=== PATIENT | female | born 1965 | race Caucasian/White ===

== ENCOUNTER 2021-01-11 16:46 | Emergency (ER) | payer OTHER, SELFPAY ==
[2021-01-11 17:04] VITALS: BP 150/98; PULSE 85; RESP 18; TEMP 36.6; O2SAT 98; BMI 21.9
--- NOTE | 2021-01-11 17:11 | HMH.EDGENADL ---
ED Disposition Clinical Impression: Right knee sprain Qualifiers: Encounter type: initial encounter Involved ligament of knee: lateral collateral ligament Qualified Code(s): S83.421A - Sprain of lateral collateral ligament of right knee, initial encounter Disposition: Home, Self-Care Condition on Discharge: Good Additional Instructions: Wear your straight leg brace and use your crutches until seen by your orthopedist, Dr. Del Castillo. Call tomorrow to make appointment. Continue ibuprofen for pain. Ice as needed for pain and swelling. Referrals: Mk Reeys [Primary Care Provider] - Forms: Work/School Release - Critical Care Critical Care Time: No Attestation: On 01/11/21, the high probability of a clinically significant, sudden or life threatening deterioration of the following system(s) required my full and direct attention, intervention and personal management. The time I documented below is in addition to time spent performing reported procedures but includes the following listed in this critical care notation. Medical Decision Making - Song Inquiry Pt receiving controlled substance: No Vital Signs: 01/11/21 17:04 Temperature 97.8 F Temperature Source Oral Pulse Rate [Left Radial] 85 Respiratory Rate 18 Blood Pressure [Left Arm] 150/98 H Blood Pressure Mean [Left Arm] 115 Blood Pressure Source [Left Arm] Automatic Cuff Blood Pressure Position [Left Arm] Sitting 02 Sat by Pulse Oximetry 98 Oxygen Delivery Method Room Air Orders (Tests/Meds): ORDERS Category Date Time Status Tibia/fibula XR right 2 views [XR tibia fibula RT 2V] Exams 01/11/21 17:15 Taken Stat - Radiology Data #1 Image(s): Knee, Tib/Fib Image Reviewed: Yes I reviewed the patient's radiology image No fracture or dislocation seen. Orthopedic screws and patella are intact. No effusion seen. General Adult HPI - General Stated complaint: rt knee locked up, fell down steps 01/10/21 Time Seen by Provider: 01/11/21 17:11 - History of Present Illness HPI narrative: States that she was walking on steps yesterday when her knee locked up causing her to fall. Since then she has pain in her right knee laterally and proximal lower leg laterally and states that she cannot bear weight. Toes feel a little tingly. States she has a prior history of a fractured patella of her right knee a few years ago with surgery, has screws in her patella. Surgery done at [facility] in [place]. She has taken ibuprofen for her current symptoms. She says that she does have a straight leg brace and crutches at home. - Related Data Allergies Allergy/AdvReac Type Severity Reaction Status Date / Time No Known Allergies Allergy Verified 01/11/21 17:12 [facility] History - Hepatitis A Screen Attestation statement:: This patient has been screened for Hepatitis A risk factors. I have reviewed the patient's past medical history: Yes ROS Obtained: Yes Systems reviewed as appropriate & no additional complaints - Musculoskeletal Musculoskeletal: Reports joint pain - Neurologic Neurologic: Denies numbness, Reports tingling, Denies weakness Physical Exam - General General appearance: alert, in no apparent distress - Respiratory Respiratory exam: Absent: respiratory distress - Cardiovascular Cardiovascular exam: Present: regular rate - Expanded Lower Extremity Exam Right Comment: Longitudinal surgical scar anterior right knee. Tenderness of the lateral right knee and the proximal one third of the lateral lower leg. No tenderness of the thigh or femur. No significant effusion detected. No deformity. Distal neurovascular status was normal sensation, movement, warmth, and pulses. - Neurological Exam Neurological exam: Present: alert, oriented X3. Absent: motor sensory deficit
--- NOTE | 2021-01-11 17:12 | XR_ITS ---
PROCEDURE INFORMATION: Exam: XR Right Knee Exam date and time: 01/11/2021 5:12 PM Age: 55 years old Clinical indication: Injury or trauma; Fall; Blunt trauma; Right; Injury date: 01/10/21; Injury details: Patient fell and knee locked up and she can not weight bear; Prior surgery; Surgery date: 6+ months; Surgery type: Previous patella fracture repair; Additional info: Previous injury, pain patient fell and knee locked up and she can not weight bear TECHNIQUE: Imaging protocol: XR Right knee. Views: 3 views. COMPARISON: No relevant prior studies available. FINDINGS: Bones/joints: Two screws seen in the patella seem intact. A nondisplaced lateral tibial plateau fracture is seen. No malalignment. Soft tissues: Soft tissues notable for a small suprapatellar effusion. IMPRESSION: There is a nondisplaced lateral tibial plateau fracture identified.
--- NOTE | 2021-01-11 17:13 | PC.NURSE ---
Notified rad of knee xray
--- NOTE | 2021-01-11 17:15 | XR_ITS ---
PROCEDURE INFORMATION: Exam: XR Right Tibia and Fibula Exam date and time: 01/11/2021 5:15 PM Age: 55 years old Clinical indication: Injury or trauma; Fall; Blunt trauma; Right; Injury date: 01/10/21; Injury details: Patient fell and knee locked up and she can not weight bear; Additional info: Fall, injury TECHNIQUE: Imaging protocol: XR Right tibia and fibula. Views: 2 views. COMPARISON: CR XR KNEE RT 3V 01/11/2021 5:13 PM FINDINGS: Bones/joints: Two screws seen in the patella seem intact. A nondisplaced lateral tibial plateau fracture is seen. No malalignment. Probable nutrient foramen running obliquely through the tibial shaft. Soft tissues: Soft tissues notable for a small suprapatellar effusion. IMPRESSION: There is a nondisplaced lateral tibial plateau fracture identified.
[2021-01-11 18:15] VITALS: BP 129/78; PULSE 75; RESP 18; TEMP 36.6; O2SAT 98
== END 2021-01-11 18:16 | disposition home or self-care (01) ==
PROVIDERS: Emergency Provider Emergency Medicine; PCP Pediatrics
DX: S83.421A Sprain of lateral collateral ligament of right knee, initial encounter (principal); W10.9XXA Fall (on) (from) unspecified stairs and steps, initial encounter; Y92.69 Other specified industrial and construction area as the place of occurrence of the external cause; Y99.0 Civilian activity done for income or pay
CPT/HCPCS: 73562; 73590; 99282

== ENCOUNTER 2024-10-01 03:59 | Emergency (ER) | payer OTHER, SELFPAY ==
--- OUTSIDE RECORDS SUMMARY | 2015-10-07 12:01 | XMS_ITS | Continuity of Care Document ---
Author Organization [facility] Address [address] [place] [address] Phone Care Team Providers Care Tavern Operator Name Role Phone Dereje Cruz MD Unavailable Unavailable Medications Medication Instructions Dosage Effective Dates (start - stop) Status Comments ciprofloxacin 0.3 % eye drops instill 1 Drop by Ophthalmic route 2 times every day into the left eye 1 Drop - Active Procedures Procedure Date OFFICE CONSULTATION OFFICE/OUTPATIENT VISIT, NEW Advance Directives Directive Yes / No Effective Date File Name No Information Encounters Encounter Description Practice Location Reason(s) For Visit Diagnoses Date Provider Providers Copied on Encounter [facility] , [address] [place], [place], [facility], tel:[phone] [facility] No Information Anthony Reyez. [address] [place] [address], [place] [address], [place], [place], [id number]. tel:[phone] OFFICE CONSULTATION [facility] , [address] [place], [place], [facility], tel:[phone] [facility] 4 day fu cl related keratitis (chief complaint) Contact lens overwear of both eyes Anthony Reyez. [address] [place] [address], [place] [address], [place], [place], [id number]. tel:[phone] Referring Provider: Dereje Scanlon, [address] [place] [address] [address], [place], [address]. tel:[phone] OFFICE/OUTPATI ENT VISIT, NEW [facility] , [address] [place], [address], tel:[phone] RAMON Camacho [facility] urgent (chief complaint) Contact lens overwear of both eyes Anthony Reyez. [address] [place] [address], [address], [place], [place], [id number]. tel:[phone] Referring Provider: Dereje Scanlon, [address] [place] [address] [address], [place], [address]. tel:[phone] Family History Family Member Type Diagnosis Age At Onset Mother Problem (finding) cataract Brother Problem (finding) Cancer, unknown Payers Payer name Insurance type Covered republican ID Authoriza tion(s) No Information Social History Type Description Quantity Date Captured Comments Sex Female Smoking Status No Information Chief Complaint And Reason For Visit No Information Reason For Referral Reason For Referral No Information History Of Present Illness Encounter Date Complaint History Of Prese nt Illness 4 day fu cl related keratitis Th e 49 year old female presents for evaluation of 4 day fu cl related keratitis in the right eye. Eye feels better. Va is getting better still little blurry. urgent The 49 year old female presents for evaluation of urgent in the right eye. It started about 3 day(s) ago. It occurs constantly. The patient feels it is moderate. Pain level fluctutates. Pt c/o photophobia. Pt c/o decreased vision. Pt does wear contact lenses. Pt does sleep in contact lenses, pt states that the pair she had was bout 2 weeks old, pt states that at night she will take them out, clean them and put them right back in and she does sleep in them every night. Pt uses regular contact lens solution. Pt does not ever use water on contact lenses. Functional Status Date Functional Assessmen t No Information Instructions Date Instruction Additional Infor chelsea - Return - PRN Related to See i mpression details - Decrease Cipro BID OD-okay to stop when patient runs out of dropOkay to f/u with local OD for new fit of contacts in 1 wk.Advised patient NOT to sleep in contacts.f/u PRN with [facility] Related to See impression details - Return to Dr. Cruz on ay Related to See impression details - - Continue Cipro Q ID OD- Advised patient to D/C CL- Follow up with [facility] 3 days to consider adding steriod Related to See impression details Assessments Type Assessment Date No Information Patient Care Teams Name Effective Dates (start - stop) Status Members No Information
--- OUTSIDE RECORDS SUMMARY | 2024-10-01 04:06 | XMS_ITS | Clinical Summary ---
Author Organization [facility] Address [address] [place] [address] Phone Care Team Providers Care Screen Printing Paster Name Role Phone Joe Pan MD Primary Care Provider Allergies Active Allergy Reactions Criticality Noted Date Comments Codeqamar Hamlin High 07/13/2013 Medications atorvastatin (LIPITOR) 40 mg Oral TabletIndicatio ns:Coronary artery disease involving lower [place] coronary artery of lower [place] heart without angina pectoris Take 1 Tablet by mouth daily. 90 Tablet 3 Active Additional Information Patient not taking.Reported on 07/16/2024 ergocalciferol (VITAMIN D) 1,250 mcg (50,000 unit) Oral CapsuleIndicati ons:Vitamin D deficiency Take 1 Capsule by mouth once a week. 12 Capsule 3 Active Additional Information Patient not taking.Reported on 07/16/2024 Active Problems Problem Noted Date Diagnosed Date Vitamin D deficiency 05/08/2024 Centrilobular emphysema 05/08/2024 Coronary artery disease invo lving lower [place] coronary artery of lower [place] heart with angina pectoris 05/08/2024 Dyslipidemia 05/03/2024 Obesity, Class I, BMI 30-34.9 05/03/2024 Assessment & Plan (05/03/2024 5:07 PM EST): Wt Readings from Last 3 Encounters: 05/03/24 192 lb (87.1 kg) 02/23/23 197 lb (89.4 kg) 04/26/22 190 lb (86.2 kg) Encouraged healthy diet/exercise Orders: VITAMIN B12/ FOLIC ACID; Future VITAMIN D 25 HYDROXY; Future History of colon polyps 05/03/2024 Assessment & Plan (05/03/2024 5:07 PM EST): Orders: SCREENING COLONOSCOPY Cigarette nicotine dependence without complicati on 05/03/2024 Assessment & Plan (05/03/2024 5:07 PM EST): Orders: CT LUNG CANCER SCREENING LOW DOSE; Future Thyromegaly 09/23/2020 Assessment & Plan (09/23/2020 12:27 PM EDT): Incidental finding Labs and ultrasound ordered. Family history of colon cancer 07/13/2013 Anxiety state 03/05/2010 Resolved Problems Problem Noted Date Diagnosed Date Resolved Date Counseling for estrogen replacement therapy 05/03/2024 05/03/2024 Gastroesophageal reflux disease 05/03/2024 05/03/2024 Right knee pain 05/01/2021 05/03/2024 Osteoarthritis of right patellofemoral joint 05/03/2024 Closed fracture of tibial pl ateau, right, sequela 05/01/2021 05/03/2024 BMI 27.0-27.9,adult 09/23/2020 05/03/19 Closed displaced fracture of right patella with routine healing 08/10/2018 05/03/2024 Tobacco abuse 04/07/2015 05/03/2024 Overview (09/23/2020): Encouraged cessation. Insomnia 07/13/2013 05/03/2024 Abnormal mammogram 08/28/2012 5 Cyst of ovary 05/10/2011 05/03/2024 Lung mass 05/10/2011 05/03/2024 Cervical dysplasia 5 Mood disorder 08/09/2018 Encounters Date Type Department Care Team Description 07/18/2024 Results [facility] [address] [place] [id number] Estelle Galdamez, URINE CULTURE (NO STAIN) 07/16/2024 1:20 PM EDT Office Visit [facility] [address] [place], [place] [address] Estelle Galdamez, UTI (urinary tract infection), uncomplicated (Primary Dx); Dysuria from Last 3 Months Immunizations Immunization Administration Dates Next Due Influenza Vaccine Quadrivalent 02/18/2015 Tdap 07/13/2013,12/26/2012 Surgical History Surgery Date Site/Laterality Comments SECTION x2 JANUSZ AND BSO 01/22/2008 ovarian cysts WRIST GANGLION EXCISION 09/02/2016 Right RIGHT VOLAR RADIAL WRIST EXICISON OF GANGLION CYST ; Sur[facility]: Sunil [facility]; [facility] Service: Hand Medical History Medical History Date Comments Cervical dysplasia Mood disorder Colon polyp 07/2013 Bronchitis 03/2016 Migraines Gastroesophageal reflux disease 05/03/2024 Insomnia 07/13/2013 Family History Medical History Relation Name Comments Breast Cancer Brother 1 Colon Cancer Brother 2 Stroke Brother 2 accidental Father Hypertension Mother Thyroid Disease Mother Anesth Problems Neg Hx Relation Name Status Comments Brother 1 Alive Brother 2 Father Maternal Grandfather Maternal Grandmother Mother Alive Paternal Grandfather Paternal Grandmother Social History Tobacco Use Types Packs/Day Years Used Date Smoking Tobacco: Every Day Cigarettes 1 35.6 Started: 03/07/1989 Smokeless Tobacco: Never Tobacco Cessation:Ready to Q uit: Not Asked; Counseling Given: Not Answered Comments:info refused Alcohol Use Standard Drinks/Week Comments No 0 (1 standard drink = 0.6 oz pur e alcohol) PHQ-2 Answer Date Recorded PHQ-2 Total Score 0 05/03/2024 Comments No Sex and Gender Information Value Date Recorded Sex Assigned at Not on file Legal Sex Female 6:14 AM EDT Gender Identity Not on file Sexual Orientation Not on file Obstetrics History Para Term AB IAB SAB Ectopic Multiple Livin g Live Births 2 Last Filed Vital Signs Vital Sign Reading Time Taken Comments Blood Pressure 140/80 07/16/2024 1:11 PM EDT Pulse 97 07/16/2024 1:11 PM EDT Temperature 36.4 C (97.6 F) 07/16/2024 1:11 PM EDT Respiratory Rate 18 07/16/2024 1:11 PM EDT Oxygen Saturation 96% 07/16/2024 1:11 PM EDT Inhaled Oxygen Concentration - - Weight 86.4 kg (190 lb 6.4 oz) 07/16/2024 1:11 P M EDT Height 170.2 cm (5' 7 ) 05/30/2024 8:09 AM EDT Body Mass Index 29.82 05/30/2024 8:09 AM EDT Plan of Treatment Health Maintenance Due Date Last Done Comments Hepatitis B Vaccine (1 of 3 - 19+ 3-dose series) 1984 Pneumococcal Vaccine 50+ (1 of 2 - PCV) 1984 Cologuard 2010 FIT 2010 Sigmoidoscopy 2010 Virtual Colonography 2010 Zoster (1 of 2) 11/01/2015 Colon Cancer Screening 07/20/2018 Colonoscopy 07/20/2018 07/20/2013 DTaP/TDaP/Td (3 - Td or Tdap) 07/14/2023 07/13/2013, 12/26/2012 COVID-19 Vaccine ( season) 2023 Influenza Vaccine (#1) 2024 02/18/2015 Annual Wellness Exam 05/03/2025 05/03/2024 Low Dose Lung Cancer Screening 05/07/2025 05/07/2024 Breast Cancer Screening 05/30/2026 05/31/19, 06/04/2022, 05/26/2022, Additional history exists Meningococcal B Vaccine Aged Out No l onger eligible based on patient's age to complete this topic Goals Goal Patient Goal Type Associated Problems Recent Progress Patient-Stated? Author Maintain a healthy diet, exercise regularly and maintain an ideal body weight General No GroLuma snyder, CCMA Stay Tobacco Free Lifestyle No Luma Camargo, CCMA Procedures Procedure Name Priority Date/Time Associated Diagnosis Comments URINE CULTURE (NO STAIN) Routine 07/16/2024 1:23 PM EDT Dysuria SEP URINALYSIS POC Routine 07/16/2024 1: 20 PM EDT Dysuria MM MAMMO DIGITAL FRANCISCO SCREEN BILAT Routine 05/30/2024 8:09 AM EDT Encounter for screening mammogram for breast cancer CT LUNG CANCER SCREENING LOW DOSE Routine 05/07/2024 8:08 AM EST Cigarette nicotine dependence without complication Encounter for screening for lung cancer GMED COLONOSCOPY Routine 07/20/2013 10:3 0 AM EDT from Last 3 Months or Most Recently Relevant to Health Maintenance Results * (ABNORMAL) URINE CULTURE (NO STAIN) (07/16/2024 1:23 PM EDT) Culture Positive Growth(A) 07/18/2024 12:20 PM EDT PREFERRED LAB [facility] Culture >100,000 CFU/mL Escherichia coli SUSCEPTIBI LITY RESULT 07/18/2024 12:20 PM EDT [facility] Urine STRUCTURE OF URINARY TRACT PROPER / Unknown 07/16/2024 1:23 PM EDT 07/16/2024 1:23 PM EDT Narrative Organism Antibiotic Method Susceptibility Escherichia coli Amikacin SUSCEPTIBILITY RESULT Escherichia coli Amoxicillin/Clavulanate SUSCEPTIBILIT Y RESULT <=8/4 ug/mL: Susceptible Escherichia coli Ampicillin SUSCEPTIBILITY RESULT <=8 ug/mL: Susceptible Escherichia coli Ampicillin/Sulbactam SUSCEPTIBILITY R ESULT <=4/2 ug/mL: Susceptible Escherichia coli Aztreonam SUSCEPTIBILITY RESULT <=4 ug/mL: Susceptible Escherichia coli Cefazolin SUSCEPTIBILITY RESULT <=2 ug/mL: Susceptible Escherichia coli Cefepime SUSCEPTIBILITY RESULT Escherichia coli Cefotaxime SUSCEPTIBILITY RESULT Escherichia coli Cefoxitin SUSCEPTIBILITY RESULT <=8 ug/mL: Susceptible Escherichia coli Ceftazidime SUSCEPTIBILITY RESULT Escherichia coli Ceftazidime/Avibactam SUSCEPTIBILITY RESULT Escherichia coli Ceftolozane/Tazobactam SUSCEPTIBILITY RESULT Escherichia coli Ceftriaxone SUSCEPTIBILITY RESULT Escherichia coli Cefuroxime SUSCEPTIBILITY RESULT Escherichia coli Ciprofloxacin SUSCEPTIBILITY RESULT <=0.25 ug/mL: Susceptible Escherichia coli Ertapenem SUSCEPTIBILITY RESULT <=0.5 ug/mL: Susceptible Escherichia coli Gentamicin SUSCEPTIBILITY RESULT <=2 ug/mL: Susceptible Escherichia coli Imipenem SUSCEPTIBILITY RESULT <=1 ug/mL: Susceptible Escherichia coli Levofloxacin SUSCEPTIBILITY RESULT <=0.5 ug/mL: Susceptible Escherichia coli Meropenem SUSCEPTIBILITY RESULT <=1 ug/mL: Susceptible Escherichia coli Meropenem/Vaborbactam SUSCEPTIBILITY RESULT Escherichia coli Minocycline SUSCEPTIBILITY RESULT Escherichia coli Moxifloxacin SUSCEPTIBILITY RESULT Escherichia coli Nitrofurantoin SUSCEPTIBILITY RESULT <=32 ug/mL: Susceptible Escherichia coli Piperacillin/Tazobactam SUSCEPTIBILIT Y RESULT <=8 ug/mL: Susceptible Escherichia coli Tetracycline SUSCEPTIBILITY RESULT <=4 ug/mL: Susceptible Escherichia coli Tigecycline SUSCEPTIBILITY RESULT Escherichia coli Tobramycin SUSCEPTIBILITY RESULT <=2 ug/mL: Susceptible Escherichia coli Trimethoprim/Sulfame tho xazole SUSCEPTIBILITY RESULT <=0.5/9.5 ug/mL: Susceptible us Estelle Galdamez DO MICROBIOLOGY - GENERAL ORDER PUNEET Final Result PREFERRED LAB [email or web address], [facility] [address] [facility] [facility] , [place] [address] * (ABNORMAL) SEP URINALYSIS POC (07/16/2024 1:20 PM EDT) UA Color POC Yellow Color 07/16/2024 1:22 PM EDT [facility] [place] UA Appear POC Slightly Cloudy(A) Clear 07/16/2024 1:22 PM EDT [facility] [place] UA Gluc POC Negative Negative mg/dL 07/16/2024 1:22 PM EDT [facility] [place] UA Bili POC Negative Negative 07/16/2024 1:22 PM EDT [facility] [place] UA Ketones POC Negative Negative mg/dL 07/16/2024 1:22 PM EDT [facility] [place] UA SG POC >=1.030 1.001 - 1.035 no units 07/16/2024 1:22 PM EDT [facility] [place] UA Blood POC Moderate(A) Negative 07/16/2024 1:22 PM EDT [facility] [place] UA pH POC 5.5 5.0 - 8.0 pH 07/16/2024 1:22 PM EDT [facility] [place] UA Protein POC 30(A) Negative mg/dL 07/16/2024 1:22 PM EDT [facility] [place] [facility]A Urobilinogen POC 0.2 0.2, 1.0 07/16/2024 1:22 PM EDT [facility] [place] [facility]A Nitrite POC Positive(A) Negative 1:22 PM EDT [facility] [place] [facility]A Leuk Est POC Negative Negative 1:22 PM EDT [facility] Urine STRUCTURE OF URINARY TRACT PROPER / Unknown 07/16/2024 1:20 PM EDT 07/16/2024 1:22 PM EDT us Estelle Galdamez DO POINT OF CARE TEST ORDERABLE S Final Result [facility] [address] [place] [address] * MM MAMMO DIGITAL FRANCISCO SCREEN BILAT (05/30/2024 8:09 AM EDT) Anatomical Region Laterality Modality Breast Bilateral Mammography 05/30/2024 8:09 AM EDT Impressions 05/31/2024 7:45 AM EDT Negative ([id number]) RECOMMENDATION: Routine Screening Mammogram in 1 Year Bilateral . . COMMENTS: DISCLAIMER *The patient was notified by MyChart or mail of the results for this examination. *The patient's information was entered into a reminder system with a target due date for the next breast imaging, in accordance with the [employer] and the Society of Breast Imaging recommendations. *Breast Imaging has a false negative rate of 15%. *Any patient with a palpable abnormality, unexplained by breast imaging, should be managed on a clinical basis by the attending physician. Narrative 05/31/2024 7:45 AM EDT EXAM: MM MAMMO DIGITAL FRANCISCO SCREEN BILAT EXAM DATE: 05/30/2024 8:09 AM INDICATION: Z12.31-Encounter for screening mammogram for malignant neoplasm of guazsy-YUZ-79-CM COMPARISON STUDIES: Compared with prior studies the most recent being 06/04/2022 MM MAMMO DIGITAL FRANCISCO DIAGN LEFT at [facility] [place] 05/26/2022 MM MAMMO DIGITAL FRANCISCO SCREEN BILAT at [facility] [place] 06/04/2021 MM MAMMO DIGITAL FRANCISCO SCREEN BILAT at [facility] TISSUE DENSITY: There are scattered areas of fibroglandular density. FINDINGS: No mammographic evidence of malignancy. Procedure Note Gage Yee III, MD - 03/27/2025 EXAM: MM MAMMO DIGITAL FRANCISCO SCREEN BILAT EXAM DATE: 05/30/2024 8:09 AM INDICATION: Z12.31-Encounter for screening mammogram for malignantneoplasm of gkftjq-ELL-11-CM COMPARISON STUDIES: Compared with prior studies the most recent being 06/04/2022 MM MAMMO DIGITAL FRANCISCO DIAGN LEFT at [facility] 05/26/2022 MM MAMMO DIGITAL FRANCISCO SCREEN BILAT at [facility] 06/04/2021 MM MAMMO DIGITAL FRANCISCO SCREEN BILAT at [facility] TISSUE DENSITY: There are scattered areas of fibroglandular density. FINDINGS: No mammographic evidence of malignancy. IMPRESSION: Negative ([id number]) RECOMMENDATION: Routine Screening Mammogram in 1 Year Bilateral . . COMMENTS: DISCLAIMER *The patient was notified by MyChart or mail of the results for this examination. *The patient's information was entered into a reminder system with atarget due date for the next breast imaging, in accordance with the [employer] and the Society of Breast Imaging recommendations. *Breast Imaging has a false negative rate of 15%. *Any patient with a palpable abnormality, unexplained by breast imaging,should be managed on a clinical basis by the attending physician. Carole Alaniz APRN [facility] ORDERABLES Final Result * CT LUNG CANCER SCREENING LOW DOSE (05/07/2024 8:08 AM EST) Anatomical Region Laterality Modality Lung Computed Tomogra phy 05/07/2024 8:08 AM EST Impressions 05/07/2024 9:15 AM EST Couple scattered small pulmonary nodules all indeterminant, unlikely to be clinically significant in the short-term. RECOMMENDATION: Low Dose CT - 1 Yr A summary letter communicating these results will be mailed to the patient's address of record. - Note: Radiology results need to be interpreted within a comprehensive clinical context. If you have questions about the radiology report, please contact the office of the ordering clinician. [email or web address] Narrative 05/07/2024 9:[address] LUNG CANCER SCREENING LOW DOSE 05/07/2024 8:08 AM CLINICAL HISTORY: Asymptomatic patient meeting NCCN high risk criteria for lung screening. F17.210-Nicotine dependence, cigarettes, qrhurkvjwirpx-CPO-43-CM Z12.2-Encounter for screening for malignant neoplasm of respiratory stdefd-YFO-30-CM. COMPARISON: None. PROCEDURE COMMENTS: Noncontrast, low-dose, multidetector CT chest per department protocol. Interactive 3-D postprocessing done by the reviewing physician on a SYNGO workstation, using Maximum intensity projections (MIPS) and SYNGAlere LUNG CAD for improved lesion detection. [place] images archived to PACS. Dose 1 : CT DLP Total : 66.79 mGycm DLP Spiral Max : 63.65 mGycm Maximum CTDI Vol : 1.72 mGy FINDINGS: The central airways are patent. Mild emphysema. Couple scattered small pulmonary nodules. No suspicious mediastinal or hilar lymphadenopathy. Heart size is within normal limits. No acute findings in limited imaging of the upper abdomen. No suspicious osseous lesion. Coronary artery calcification: Mild. FOLLOW-UP CODE: Lung-RADS Category 2: Benign Appearance or Behavior. Nodules with a very low likelihood of becoming active cancer due to size or lack of growth. Lung-RADS Modifier N/A: No Modifier Needed Procedure Note Ruben Ralph MD - 05/07/2024 CT LUNG CANCER SCREENING LOW DOSE 05/07/2024 8:08 AM CLINICAL HISTORY: Asymptomatic patient meeting NCCN high risk criteria forlung screening. F17.210-Nicotine dependence, cigarettes,njwjqryyseifl-CVO-38-CM Z12.2-Encounter for screening for malignant neoplasm of respiratory fyfgam-STG-53-CM. COMPARISON: None. PROCEDURE COMMENTS: Noncontrast, low-dose, multidetector CT chest perdepartment protocol. Interactive 3-D postprocessing done by the reviewing physicianon a 9GAGO workstation, using Maximum intensity projections (MIPS) and SYNGOLUNG CAD for improved lesion detection. [place] images archived to PACS. Dose 1 : CT DLP Total : 66.79 mGycm DLP Spiral Max : 63.65 mGycm Maximum CTDI Vol : 1.72 mGy FINDINGS: The central airways are patent. Mild emphysema. Couple scattered small pulmonary nodules. No suspicious mediastinal or hilar lymphadenopathy. Heart size is withinnormal limits. No acute findings in limited imaging of the upper abdomen. No suspicious osseous lesion. Coronary artery calcification: Mild. FOLLOW-UP CODE: Lung-RADS Category 2: Benign Appearance or Behavior.Nodules with a very low likelihood of becoming active cancer due to size or lackof growth. Lung-RADS Modifier N/A: No Modifier Needed IMPRESSION: Couple scattered small pulmonary nodules all indeterminant, unlikely marquise clinically significant in the short-term. RECOMMENDATION: Low Dose CT - 1 Yr A summary letter communicating these results will be mailed to thepatient's address of record. - Note: Radiology results need to be interpreted within a comprehensiveclinical context. If you have questions about the radiology report, please contactthe office of the ordering clinician. [email or web address] Carole Alaniz MANUAL E[employer]MENT [employer] IMG CT ORDERABLES Final Res ult * GMED COLONOSCOPY (07/20/2013 10:30 AM EDT) 07/20/2013 10:3 0 AM EDT Impressions [facility] - 07/20/2013 10:41 AM EDT Normal mucosa in the terminal ileum. Polyp in the sigmoid colon. (Polypectomy). Internal hemorrhoids. Plan: Await pathology results Colonoscopy in 5 years. High fiber diet 25- 30 grams daily, minimize straining and toileting time. If having difficulty with hemorrhoids despite conservative measures, consider endoscopic or in-office banding. This section is an excerpt of the full report. us Rupert Irene DO GI PROCEDURE ORDERABLES E dited Result - Final [facility] [address] [place] [address] from Last 3 Months or Most Recently Relevant to Health Maintenance Insurance [employer] [facility] [place] [address] [facility] [address] [employer] Care Teams Screen Printing Paster Relationship Specialty Start Date End Date [place] [address] [place] [address] PCP - General Family Medicine 07/13/13
--- OUTSIDE RECORDS SUMMARY | 2024-10-01 04:06 | XMS_ITS | Referral Summary ---
Author Organization [facility] Address [address] [place] [address] Care Team Providers Care Product Planner Name Role Phone kM Reyes MD Primary Care Provider + Dayday Man MD Unavailable [phone] Allergies Active Allergy Reactions Criticality Noted Date Comments Codeine Itch,Hives 03/23/2017 Medications No known medications Active Problems No known active problems Social History Tobacco Use Types Packs/Day Years Used Date Smoking Tobacco: Every Day Smokeless Tobacco: Never Alcohol Use Standard Drinks/Week Comments No 0 (1 standard drink = 0.6 oz pur e alcohol) Comments Unknown Sex and Gender Information Value Date Recorded Sex Assigned at Not on file Legal Sex Female 1:41 PM EST Gender Identity Not on file Sexual Orientation Not on file Last Filed Vital Signs Vital Sign Reading Time Taken Comments Blood Pressure 129/77 03/23/2017 11:29 AM EST Pulse 88 03/23/2017 11:29 AM EST Temperature - - Respiratory Rate - - Oxygen Saturation - - Inhaled Oxygen Concentration - - Weight 63.5 kg (140 lb) 03/23/2017 11:29 AM EST Height 170.2 cm (5' 7 ) 03/23/2017 11:29 AM EST Body Mass Index 21.93 03/23/2017 11:29 AM EST Plan of Treatment Not on file Insurance WC SELF INS[employer]ED Care Teams Product Planner Relationship Specialty Start Date End Date Mk Reyes MD PCP - General Pediatrics 03/16/17 Dayday Man MD Attending Physician Hand Surgery 03/23/17
--- OUTSIDE RECORDS SUMMARY | 2024-10-01 04:06 | XMS_ITS | Clinical Summary ---
Author Organization [facility] Address [address] [place] [address] Care Team Providers Care Truck Unloader Name Role Phone Mk Reyes MD Primary Care Provider + Dayday Man MD Unavailable [phone] Allergies Active Allergy Reactions Criticality Noted Date Comments Codeine Itch,Hives 03/23/2017 Medications No known medications Active Problems No known active problems Family History Medical History Relation Name Comments Cancer Brother Heart Disease Brother Asthma Daughter Diabetes Maternal Grandmother Thyroid Disease Mother Relation Name Status Comments Brother Daughter Maternal Grandmother Mother Social History Tobacco Use Types Packs/Day Years [...] 03/23/2017 11:29 AM EST Plan of Treatment Health Maintenance Due Date Last Done Comments DTap,Tdap,and Td (1 - Tdap) 1976 Pap Screening 1986 Mammogram Screening 2005 Colonoscopy 2010 Pneumococcal 50+ (1 of 1 - PCV) 11/01/2015 Shingrix (#1) 11/01/2015 Influenza Vaccine (#1) 2024 RSV Vaccine (60+ or ) (1 - 1-dose 75+ series) 2040 HPV Aged Out No longer eligi ble based on patient's age to complete this topic Meningococcal conjugate shayna nt 4 (MCV4) Aged Out No longer eligible b ased on patient's age to complete this topic RSV Immunization (<20 months) Aged Out No longer eligible based on patient's age to complete this topic Insurance SELF INSURED Care Teams Truck Unloader Relationship Specialty Start Date End Date Mk Reyes MD PCP - General Pediatrics 03/16/17 Dayday Man MD Attending Physician Hand Surgery 03/23/17
--- OUTSIDE RECORDS SUMMARY | 2024-10-01 04:06 | XMS_ITS | Encounter Summary ---
Author Organization [facility] Address [address] [place] [address] Care Team Providers Care Pipe Caulker Name Role Phone Joe Pan MD Primary Care Provider [phone] Encounter Details Date Type Department Care Team (Late st Contact Info) Description 07/18/2024 Results [facility]-Up [facility] [address] [place] [address] Estelle Galdamez, DO [address] [place], [place] [id number] URINE CULTURE (NO STAIN) Social History Tobacco Use Types Packs/Day Years Used Date Smoking Tobacco: Every Day Cigarettes 1 35.6 Started: 03/07/1989 Smokeless Tobacco: Never Comments:info refused Alcohol Use Standard Drinks/Week Comments No 0 (1 standard drink = 0.6 oz pur e alcohol) PHQ-2 Answer Date Recorded PHQ-2 Total Score 0 05/03/2024 Comments No Sex and Gender Information Value Date Recorded Sex Assigned at Not on file Legal Sex Female 6:14 AM EDT Gender Identity Not on file Sexual Orientation Not on file documented as of this encounter Functional Status * Is the person deaf or does he/she have serious difficulty hearing? Answer Date of Assessment Author No 05/03/2024 2:56 PM Kallie Grajeda CCMA * Is the person blind or does he/she have serious difficulty seeing even when wearing glasses? Answer Date of Assessment Author No 05/03/2024 2:56 PM Kallie Grajeda CCMA * Does this person have serious difficulty walking or climbing stairs? Answer Date of Assessment Author No 05/03/2024 2:56 PM Kallie Grajeda CCMA * Does this person have difficulty dressing or bathing? Answer Date of Assessment Author No 05/03/2024 2:56 PM Kallie Grajeda CCMA * Because of a physical, mental or emotional condition, does this person have difficulty doing errands alone such as visiting a doctor's office or shopping? Answer Date of Assessment Author No 05/03/2024 2:56 PM Kallie Grajeda CCMA documented as of this encounter Mental Status * Because of a physical, mental or emotional condition, does this person have serious difficulty concentrating, remembering or making decisions? Answer Entry Date Author No 05/03/2024 2:56 PM Kallie Grajeda CCMA documented in this encounter Plan of Treatment Not on file documented as of this encounter Goals Goal Patient Goal Type Associated Problems Recent Progress Patient-Stated? Author Maintain a healthy diet, exercise regularly and maintain an ideal body weight General No Luma Camargo CCMA Stay Tobacco Free Lifestyle No Luma Camargo CCMA documented as of this encounter Visit Diagnoses Not on filedocumented in this encounter Care Teams Pipe Caulker Relationship Specialty Start Date End Date Joe Pan MD [address] [place], [place] [id number] PCP - General Family Medicine 07/13/13 documented as of this encounter
--- OUTSIDE RECORDS SUMMARY | 2024-10-01 04:06 | XMS_ITS | Encounter Summary ---
Author Organization [place] [address] Care Team Providers Care Locator Name Role Phone Joe Pan MD Primary Care Provider Encounter Details Date Type Department Care Team (Late st Contact Info) Description 07/20/2013 Orders Only SEP Gastro CV [address] [id number] Rupert Irene, DO [address] [facility] [address] [place] [address] Social History Tobacco Use Types Packs/Day Years Used Date Smoking Tobacco: Every Day Cigarettes Smokeless Tobacco: Current Alcohol Use Standard Drinks/Week Comments Not Asked 0 (1 standard drink = 0.6 oz pur e alcohol) Comments No Sex and Gender Information Value Date Recorded Sex Assigned at Not on file Legal Sex Female 6:14 AM EDT Gender Identity Not on file Sexual Orientation Not on file documented as of this encounter Plan of Treatment Not on file documented as of this encounter Procedures Procedure Name Priority Date/Time Associated Diagnosis Comments GMED COLONOSCOPY Routine 07/20/2013 10:3 0 AM EDT documented in this encounter Results * GMED COLONOSCOPY (07/20/2013 10:30 AM EDT) 07/20/2013 10:3 0 AM EDT Impressions [facility] - 07/20/2013 10:41 AM EDT [...] PROCEDURE ORDERABLES E dited Result - Final [facility] [address] [place] [address] documented in this encounter Visit Diagnoses Not on filedocumented in this encounter Additional Health Concerns Infection Onset Date Last Indicated Resolved Time INFLUENZA 02/23/2023 02/23/2023 03/09/2023 10:1 3 PM EST COVID-19 02/23/2023 02/23/2023 03/15/2023 10:1 2 PM EST documented as of this encounter Care Teams Locator Relationship Specialty Start Date End Date Joe Pan MD [address] [place] [address] PCP - General Family Medicine 07/13/13 documented as of this encounter
--- OUTSIDE RECORDS SUMMARY | 2024-10-01 04:06 | XMS_ITS | Clinical Summary ---
Author Organization [facility] Address [address], [address] [place] [address] Care Team Providers Care Rn International Name Role Phone Mk Reyes MD Primary Care Provider [phone] Allergies Active Allergy Reactions Criticality Noted Date Comments Codeine Hives,Itching Medium 08/08/2018 Tolerates Percocet Medications Cholecalciferol (VITAMIN D3) 1000 units TABS Take 1 tablet by mouth 2 times daily (with meals) 90 tablet 1 9 Active aspirin 325 MG EC tablet Take 1 tablet by mouth daily 30 tablet 9 Active senna-docusate (PERICOLACE) 8.6-50 MG per tablet Take 2 tablets by mouth daily as needed for Constipation 14 tablet 9 Active diclofenac (VOLTAREN) 75 MG EC tablet Take 1 tablet by mouth 2 times daily 1 PO Q BID WITH FOOD 60 tablet 2 9 Active meloxicam (MOBIC) 15 MG tablet Take 1 tablet by mouth daily 30 tablet 2 Active Active Problems Problem Noted Date Diagnosed Date Closed displaced fracture of right patella with routine healing 08/10/2018 Social History Tobacco Use Types Packs/Day Years Used Date Smoking Tobacco: Every Day Cigarettes 1 46.1 Started: 08/10/1978 Smokeless Tobacco: Never Alcohol Use Standard Drinks/Week Comments Never 0 (1 standard drink = 0.6 oz pur e alcohol) AUDIT-C Answer Date Recorded Frequency of Alcohol Consumption Never 08/08/2018 Average Number of Drinks Not on file 019 Frequency of Binge Drinking Not on file 06/2018 Comments No Sex and Gender Information Value Date Recorded Sex Assigned at Not on file Legal Sex Female 2:07 PM EDT Gender Identity Not on file Sexual Orientation Not on file Last Filed Vital Signs Vital Sign Reading Time Taken Comments Blood Pressure 118/76 02/12/2019 1:13 PM EST Pulse 79 02/12/2019 1:13 PM EST Temperature 36.7 C (98.1 F) 02/03/2021 3:15 PM EST Respiratory Rate 16 08/10/2018 5:31 PM EDT Oxygen Saturation 96% 08/10/2018 5:31 PM EDT Inhaled Oxygen Concentration - - Weight 63.5 kg (140 lb) 05/25/2021 1:02 PM EDT Height 170.2 cm (5' 7 ) 05/25/2021 1:02 PM EDT Body Mass Index 21.93 05/25/2021 1:02 PM EDT Plan of Treatment Not on file Medical Devices Implanted Type Area Corporate Tax Manager Device Identifier Shelf Expiration Date Model / Serial / Lot Screw Lprof Malvin Blunt Tip [id number] Mm Implanted:Qty: 2 on 08/10/2018 by Mars Del Castillo MD at [facility] Screw/Heriberto te/Nail/R od Right: Knee [employer]PMM [id number] / / N/A Insurance GENERIC SELF-INSURED Care Teams Rn International Relationship Specialty Start Date End Date Mk [place] [address] [place] [address] PCP - General Internal Medicine 08/09/18
--- NOTE | 2024-10-01 04:07 | CT_ITS ---
PROCEDURE INFORMATION: Exam: CT Abdomen And Pelvis With Contrast Exam date and time: 10/01/2024 5:24 AM Age: 58 years old Clinical indication: Abdominal pain; Other: Llq abd pain, n/v/d TECHNIQUE: Imaging protocol: Computed tomography of the abdomen and pelvis with contrast. Radiation optimization: All CT scans at this facility use at least one of these dose optimization techniques: automated exposure control; mA and/or kV adjustment per patient size (includes targeted exams where dose is matched to clinical indication); or iterative reconstruction. Contrast material: ISOVUE; Contrast volume: 75 ml; Contrast route: IV; COMPARISON: No relevant prior studies available. FINDINGS: Liver: Liver is low in density. Gallbladder and biliary ducts: Normal. No calcified stones. No ductal dilation. Pancreas: Normal. No ductal dilation. Spleen: Normal. No splenomegaly. Adrenal glands: Normal. No mass. Kidneys and ureters: 7 mm stone in the distal left ureter with moderate left-sided hydroureter and hydronephrosis. 2 mm stone in the left intrarenal collecting system. Stomach and bowel: Unremarkable. No obstruction. No mucosal thickening. Appendix: No evidence of appendicitis. Intraperitoneal space: Unremarkable. No free air. No significant fluid collection. Vasculature: Unremarkable. No abdominal aortic aneurysm. Lymph nodes: Unremarkable. No enlarged lymph nodes. Urinary bladder: Unremarkable as visualized. Reproductive: Unremarkable as visualized. Bones/joints: Unremarkable. No acute fracture. Soft tissues: Unremarkable. IMPRESSION: 1. 7 mm stone in the distal left ureter with moderate left-sided hydroureter and hydronephrosis. Left-sided nephrolithiasis. 2. Diffuse hepatic steatosis.
--- NOTE | 2024-10-01 04:07 | HMH.EDGENADL ---
Discharge Plan Disposition Patient Disposition: Xfer Other Prescriptions Prescriptions: No Action No Known Home Medications Referrals Follow up/Referrals: Mk Reyes [Primary Care Provider, Medical] - See instructions Activity Restrictions/Add. Instructions Additional Instructions/Restrictions: Please proceed directly to [facility] Clinical Impressions Clinical Impression: Hydronephrosis with ureteral calculus, UTI (urinary tract infection) Instructions Patient Instructions: DI for Acute Abdominal Pain Print Language Print Language: Kosovan Discharge ED Provider: Chet Youssef General Adult HPI General Chief complaint: Abdominal Pain Stated complaint: L side abd pain Time Seen by Provider: 10/01/24 04:00 History of Present Illness HPI narrative: 58-year-old female with no reported past medical history presents for left-sided lower abdominal pain. She reports it started this morning and woke her from sleep around 2 AM. Has been worsening. It is associated with nausea vomiting and diarrhea. She reports that she has been having some urinary symptoms recently. Denies fever at home. Related Data Home Medications ?Medication ?Instructions ?Recorded ?Confirmed No Known Home Medications 10/01/24 10/01/24 Allergies Allergy/AdvReac Type Severity Reaction Status Date / Time No Known Allergies Allergy Verified 01/11/21 17:12 [facility] Disclaimer: The information contained in this section may have been updated after the patient was seen, as this information can be updated by other users. Social History Smoking Status: Current every day smoker alcohol intake: never current occupational status: employed Travel in the last 8 weeks?: None Other Medical History Have you received the Flu Vaccine for this season: No Have you received the Pneumonia Vaccine: No ROS Obtained: Yes All systems reviewed & no additional complaints except as documented Physical Exam General General appearance: alert and in no apparent distress Head Head exam: atraumatic and normocephalic Eye Eye exam: Present normal appearance, PERRL and EOMI ENT ENT exam: Present normal oropharynx and normal external ear exam Neck Neck exam: Present normal inspection and full ROM Chest Chest inspection: Present normal inspection and symmetric chest wall rise; Absent tenderness Respiratory Respiratory exam: Present normal lung sounds bilaterally; Absent respiratory distress Cardiovascular Cardiovascular exam: Present regular rate and normal rhythm Abdominal Exam Abdominal exam: Present soft and tenderness (Left lower quadrant); Absent distention or guarding Extremities Exam Extremities exam: Present normal inspection; Absent edema or joint swelling Back Exam Back exam: Present normal inspection; Absent tenderness Neurological Exam Neurological exam: Present alert and oriented X3; Absent motor sensory deficit Psychiatric Psychiatric exam: Present normal affect and normal mood Skin Skin exam: Present warm, dry and normal color Lymphatic Lymphatic Findings: no adenopathy Medical Decision Making Medical Records Medical records reviewed: Yes I reviewed the patient's medical records. Screening: Per USPSTF and CDC recommendations, given the prevalence of disease in our region, it is our hospital?s policy to screen for HIV and viral Hepatitis for all patients aged 18 and over and those with ongoing risk factors. Song Inquiry Pt receiving controlled substance: No Song was queried for this patient: No Vital Signs: 10/01/24 04:09 10/01/24 04:30 10/01/24 05:00 Temperature 98.0 F Temperature Source Oral Pulse Rate 77 75 Pulse Rate [Right] 74 Respiratory Rate 22 16 16 Blood Pressure 155/91 H 145/90 H Blood Pressure [Right Arm] 153/96 H Blood Pressure Mean 118 115 Blood Pressure Mean [Right Arm] 115 02 Sat by Pulse Oximetry 100 95 94 L 10/01/24 05:30 10/01/24 06:00 Temperature Temperature Source Pulse Rate 77 71 Pulse Rate [Right] Respiratory Rate 16 15 Blood Pressure 148/82 H 150/85 H Blood Pressure [Right Arm] Blood Pressure Mean 104 114 Blood Pressure Mean [Right Arm] 02 Sat by Pulse Oximetry 96 97 Lab Data Lab results reviewed: Yes I reviewed the patient's lab results. Lab Results 10/01/24 04:08: Urine Color Yellow, Urine Appearance Sl cloudy, Urine pH 6.0, Ur Specific [place] 1.025, Urine Protein Negative, Urine Glucose (UA) Negative, Urine Ketones Negative, Urine Blood 3+ A, Urine Nitrate Positive A, Urine Bilirubin Negative, Urine Urobilinogen 0.2, Ur Leukocyte Esterase Trace, Urine RBC 10-20, Urine WBC Occasional, Ur Squamous Epith Cells 5-10, Urine Bacteria 2+ 10/01/24 04:10: WBC 13.4 H, RBC 5.30, Hgb 15.5, Hct 47.2 H, MCV 89.1, MCH 29.2, MCHC 32.8, RDW 14.3, Plt Count 323, MPV 9.8, Neut % (Auto) 67.1, Lymph % (Auto) 26.5, [place] % (Auto) 4.7, Eos % (Auto) 0.9, Baso % (Auto) 0.4, Neut # (Auto) 9.0 H, Lymph # (Auto) 3.6, [place] # (Auto) 0.6, Eos # (Auto) 0.1, Baso # (Auto) 0.1, Sodium 138, Potassium 3.8, Chloride 104, Carbon Dioxide 26, Anion Gap 11.8, BUN 17, Creatinine 0.90, Estimated Creat Clear 88, Estimated GFR 64, Est GFR ( Amer) 78, Glucose 141 H, Calcium 10.3 H, Magnesium 1.9, Total Bilirubin 0.5, AST 29, ALT 69, Alkaline Phosphatase 112, Total Protein 8.0, Albumin 4.8, Globulin 3.2, Albumin/Globulin Ratio 1.5, Lipase 81, HCV Ab JANETTE w/Rflx PCR Qn Negative, HIV Ag/Ab Combo Qual Negative 10/01/24 04:10 10/01/24 04:10 Orders (Tests/Meds): ED MEDICATIONS Generic Name Dose Route Start Last Admin Trade Name Freq PRN Reason Stop Dose Admin Morphine Sulfate 4 mg 10/01/24 06:08 Morphine 4mg/Ml Syringe IV 10/01/24 06:09 ONCE ONE Discontinued Medications Generic Name Dose Route Start Last Admin Trade Name Freq PRN Reason Stop Dose Admin Acetaminophen 1,000 mg 10/01/24 04:07 10/01/24 04:21 Acetaminophen 500mg Tab PO 10/01/24 04:08 1,000 mg ONCE ONE Administration Sodium Chloride 1,000 mls @ 999 mls/hr 10/01/24 04:15 10/01/24 04:21 Sod Chlor 0.9% 1000ml Bag IV 10/01/24 05:15 999 mls/hr .Q1H1M FREDDIE Administration Ceftriaxone Sodium 2 gm/ 100 mls @ 200 mls/hr 10/01/24 05:36 10/01/24 05:47 Sodium Chloride IV 10/01/24 06:05 200 mls/hr ONCE ONE Administration Iopamidol 75 ml 10/01/24 05:25 10/01/24 05:26 Iopamidol-370 (76%);100ml Bottle IV 10/01/24 05:26 75 ml ONCE ONE Administration Ketorolac Tromethamine 30 mg 10/01/24 04:07 10/01/24 04:22 Ketorolac 30mg/Ml Vial IV 10/01/24 04:08 30 mg ONCE ONE Administration Ondansetron HCl 4 mg 10/01/24 04:07 10/01/24 04:21 Ondansetron 4mg/2ml Vial IV 10/01/24 04:08 4 mg ONCE ONE Administration Sodium Chloride 10 ml 10/01/24 05:25 10/01/24 05:26 Sodium Chloride 0.9% 10ml Syr (Rad Only) IV 10/01/24 05:26 10 ml ONCE ONE Administration ORDERS Category Date Time Status CT abdomen pelvis w con Stat Cat Scan 10/01/24 04:07 Completed CBC w/Auto Diff [Complete Blood Count Auto Diff] Stat Lab 10/01/24 04:10 Completed CMP [Comprehensive Metabolic Panel] Stat Lab 10/01/24 04:10 Completed HIV Combo Stat Lab 10/01/24 04:10 Completed Hepatitis C Ab Qual. W/ RFX Stat Lab 10/01/24 04:10 Completed Lipase Stat Lab 10/01/24 04:10 Completed Magnesium Stat Lab 10/01/24 04:10 Completed UA [Urinalysis and Microscopic] Stat Lab 10/01/24 04:08 Completed Blood Culture Stat Micro 10/01/24 05:43 Received Urine Culture Stat Micro 10/01/24 04:08 Received Medical Decision Narrative: 58-year-old female with no significant reported past medical history presents for left lower quad abdominal pain, nausea vomiting and diarrhea for the last couple of hours. History was obtained via interactive discussion with patient. On arrival, patient is [afebrile, hemodynamically stable, satting appropriately, alert, oriented x4, GCS 15], moving all extremities spontaneously. Full physical exam performed and significant for left lower quadrant abdominal tenderness Differential includes but is not limited to UTI, pyelonephritis, diverticulitis, gastroenteritis, colitis. Patient was given Tylenol Toradol Zofran IV fluid bolus for symptomatic management and correction of underlying abnormalities. Workup initiated including UA, CBC CMP CT abdomen pelvis with IV contrast lipase. On re-evaluation, patient [remains afebrile, HD stable.] Laboratory workup independently interpreted by me and significant for urinalysis concerning for infection with positive nitrates and 2+ bacteria as well as 10-20 RBCs. Normal renal function, mild leukocytosis noted. Imaging independently interpreted by me and significant for left UVJ stone, 7 mm with proximal hydronephrosis and hydroureter. See radiology read for full review of final results. Given patient history, exam and workup, patient's presentation most likely represents septic obstructing left-sided ureteral stone. Blood cultures were obtained and patient was initiated on IV ceftriaxone for antibiotic coverage. Given we do not have urology here, patient will require transfer. I called and spoke with RISSA Canseco who accepted the patient in transfer to [facility]. Procedures Risk/Benefits of Procedure(s) Were Explained: Yes Critical Care Critical Care Time Critical Care Time: No
[2024-10-01 04:09] VITALS: BP 153/96; PULSE 74; RESP 22; TEMP 36.7; O2SAT 100; BMI 28.1
[2024-10-01 04:11] LABS: Microscopic, Urine URINE MICROSCOPIC (MICROSCOPIC)
[2024-10-01 04:12] LABS: Bilirubin,Urine Negative (Negative); Color,Urine YELLOW (Yellow); Glucose,Urine (UA) Negative (Negative); Ketones,Urine Negative (Negative); Leukocyte Esterase,Urine TRACE (Negative); PH,Urine 6.0 (5.0-8.5); Protein,Urine Negative (Negative); Specific Gravity, Urine 1.025 (1.005-1.030); Urobilinogen,Urine 0.2 EU/dl (0.2)
[2024-10-01 04:17] LABS: Hematocrit 47.2 % (37.0-47.0); Hemoglobin 15.5 g/dL (12.2-16.2); Immature Granulocytes % 0.4 %; Mean Corpuscular HGB Conc 32.8 g/dL (31.8-35.4); Mean Corpuscular Hemoglobin 29.2 pg (27.0-31.2); Mean Corpuscular Volume 89.1 fl (81-99); Nucleated Red Blood Cells % 0 %; Platelet Count 323 K/mm3 (142-424); Red Blood Count 5.30 M/mm3 (4.20-5.40); Red Cell Distribution Width-SD 46.8 fL; White Blood Count 13.4 K/mm3 (4.8-10.8)
[2024-10-01 04:21] LABS: WBC,Urine Occasional #/hpf (0-3)
[2024-10-01] MEDS: ONDANSETRON 4MG/2ML VIAL 4 MG IV (04:21)
[2024-10-01] MEDS: ACETAMINOPHEN 500MG TAB 1000 MG PO (04:21)
[2024-10-01] MEDS: 0.9 % SODIUM CHLORIDE 1000ML 1,000 ML 999 ML IV (04:21)
[2024-10-01 04:22] LABS: Bacteria,Urine 2+ /lpf
[2024-10-01] MEDS: KETOROLAC 30MG/ML VIAL 30 MG IV (04:22)
[2024-10-01 04:23] LABS: Albumin Level 4.8 g/dl (3.5-5.0); Chloride 104 mmol/L (98-107)
[2024-10-01 04:24] LABS: Potassium 3.8 mmoL/L (3.5-5.1); Sodium 138 mmol/L (136-145)
[2024-10-01 04:26] LABS: Alanine Aminotransferase 69 U/L (12-78); Anion Gap 11.8 mEq/L (5-15); Aspartate Amino Transferase 29 U/L (14-36); Blood Urea Nitrogen 17 mg/dl (7-17); Carbon Dioxide 26 mmol/L (22.0-30.0); Creatinine Clearance Estimated 88 mL/min (50-200); Creatinine,Serum 0.90 mg/dl (0.52-1.04); Estimated Glomerular Filt Rate 64 ml/min (>60); GFR (African American) 78 ML/MIN (>60)
[2024-10-01 04:27] LABS: Albumin/Globulin Ratio 1.5 (1.1-1.8); Alkaline Phosphatase 112 U/L (38-126); Bilirubin,Total 0.5 mg/dl (0.2-1.3); Calcium 10.3 mg/dl (8.4-10.2); Globulin 3.2 g/dL (1.3-3.2); Glucose 141 mg/dl (74-100); Lipase 81 U/L (23-300); Magnesium 1.9 mg/dl (1.6-2.3); Total Protein,Serum 8.0 g/dl (6.3-8.2)
[2024-10-01 04:30] VITALS: BP 155/91; PULSE 77; RESP 16; O2SAT 95
[2024-10-01 05:00] VITALS: BP 145/90; PULSE 75; RESP 16; O2SAT 94
[2024-10-01] MEDS: SODIUM CHLORIDE 0.9% 10ML SYR (RAD ONLY) 10 ML IV (05:26)
[2024-10-01] MEDS: IOPAMIDOL-370 (76%);100ML BOTTLE 75 ML IV (05:26)
[2024-10-01 05:30] VITALS: BP 148/82; PULSE 77; RESP 16; O2SAT 96
[2024-10-01 05:30] LABS: Hepatitis C Ab Qual. W/ RFX NEGATIVE (Negative)
--- NOTE | 2024-10-01 05:55 | PC.NURSE ---
Called [facility] for a possible pt transfer. Said they would Call back
[2024-10-01 06:00] VITALS: BP 150/85; PULSE 71; RESP 15; O2SAT 97
[2024-10-01] MEDS: MORPHINE 4MG/ML SYRINGE 4 MG IV (06:13)
[2024-10-01 06:25] VITALS: BP 150/85; PULSE 76; RESP 16; TEMP 36.6; O2SAT 98
--- NOTE | 2024-10-02 12:16 | PC.NURSE ---
Urine culture results faxed to [facility] at [phone]
== END 2024-10-01 06:34 | disposition other institution (70) ==
PROVIDERS: Emergency Provider Emergency Medicine; PCP Pediatrics
DX: R10.32 Left lower quadrant pain (principal); N13.2 Hydronephrosis with renal and ureteral calculous obstruction; N39.0 Urinary tract infection, site not specified; F17.200 Nicotine dependence, unspecified, uncomplicated
CPT/HCPCS: 74177; 80053; 81001; 83690; 83735; 85025; 86803; 87040; 87077; 87086; 87088; 87389; 96361; 96365; 96375; 99285; J0696; J1885; J2270; J2405; J7030; Q9967